=== PATIENT | female | born 1955 | race Caucasian/White ===

== ENCOUNTER 2021-06-21 23:06 | Inpatient (IN) | payer MEDICARE, MEDICAID ==
[~2021-06-21] VITALS: Ht 165.1 cm; Wt 81.0 kg
[2021-06-22 01:17] LABS: BASOPHILS # (AUTO) 0.1 X10'3 (0-0.2); BASOPHILS % (AUTO) 0.9 % (0-1); EOSINOPHILS # (AUTO) 0.2 X10'3 (0-0.9); EOSINOPHILS % (AUTO) 2.7 % (0-6); HEMATOCRIT 45.5 % (35.0-45.0); HEMOGLOBIN 16.1 g/dl (12.0-16.0); LYMPHOCYTES # (AUTO) 1.1 X10'3 (1.1-4.8); LYMPHOCYTES % (AUTO) 18.3 % (21-51); MEAN CORPUSCULAR HGB CONC 35.3 g/dL (33.0-36.5); MEAN PLATELET VOLUME 9.3 FL (7.4-10.4); MONOCYTES # (AUTO) 0.7 X10'3 (0-0.9); MONOCYTES % (AUTO) 11.2 % (2-12); NEUTROPHILS # (AUTO) 4.1 X10'3 (1.8-7.7); NEUTROPHILS % (AUTO) 66.9 % (42-75); PLATELET COUNT 149 X10'3 (140-440); RED CELL DISTRIBUTION WIDTH 13.7 % (11.5-14.5); WHITE BLOOD COUNT 6.2 X10'3 (4.5-11.0)
[2021-06-22 01:20] LABS: URINE AMPHETAMINE SCREEN NEGATIVE (Neg); URINE BARBITUATE SCREEN NEGATIVE (Neg); URINE BENZODIAZEPINES SCREEN NEGATIVE (Neg); URINE CANNABINOID SCREEN NEGATIVE (Neg); URINE COCAINE SCREEN NEGATIVE (Neg); URINE METHADONE SCREEN NEGATIVE (Neg); URINE OPIATE SCREEN NEGATIVE (Neg); URINE PHENCYCLIDINE SCREEN NEGATIVE (Neg)
[2021-06-22 01:25] LABS: ALANINE AMINOTRANSFERASE 38 U/L (12-78); ALBUMIN 2.7 G/DL (3.4-5.0); ALBUMIN/GLOBULIN RATIO 0.6 (1.1-1.5); ALKALINE PHOSPHATASE 179 IU/L (46-116); ANION GAP 8 (8-16); ASPARTATE AMINO TRANSFERASE 42 U/L (10-37); BILIRUBIN,TOTAL 5.4 MG/DL (0.1-1.0); BLOOD UREA NITROGEN 13 MG/DL (7-18); BUN/CREATININE RATIO 16.5 (6.6-38.0); CALCIUM 9.2 MG/DL (8.5-10.1); CHLORIDE 108 MMOL/L (99-107); CREATININE 0.79 MG/DL (0.40-0.90); ETHANOL < 0.010 GM/DL (0.0-0.010); GLUCOSE 110 MG/DL (70-104); SODIUM 143 MMOL/L (135-145); TOTAL CARBON DIOXIDE 27.3 MMOL/L (24-32); TOTAL PROTEIN 7.6 G/DL (6.4-8.2); TROPONIN I < 0.04 NG/ML (0.0-0.05); eGFR 73 ML/MIN
[2021-06-22 01:27] LABS: CLARITY,URINE CLOUDY (Clear); COLOR,URINE DARK YELLOW (Yellow); GLUCOSE, URINE NEGATIVE (Neg); PROTEIN,URINE NEGATIVE (Neg); UA COLLECTION TYPE STRAIGHT CATH
[2021-06-22 01:28] LABS: KETONES,URINE NEGATIVE (Neg); NITRITES, URINE NEGATIVE (Neg); OCCULT BLOOD,URINE MODERATE (Neg)
[2021-06-22 01:29] LABS: LEUKOCYTE ESTERASE ,URINE SMALL (Neg); UROBILINOGEN,URINE >=8.0 E.U/dL (0.2-1.0)
[2021-06-22 01:30] LABS: POTASSIUM 2.5 MMOL/L (3.5-5.1)
[2021-06-22] MEDS ORDERED: potassium Cl 20 mEq SR tablet PO ONE (01:30)
[2021-06-22] MEDS ORDERED: magnesium 2GM in 50ml NS 50 ML IV ONE (01:30)
[2021-06-22] MEDS ORDERED: potassium Cl 40 mEq/0.45% sodium chloride IV soln 520ml IV ONE (01:30)
[2021-06-22 01:36] LABS: BACTERIA,URINE 4+ /HPF (Neg); MUCUS STRANDS FEW /LPF (Neg); SQUAMOUS EPITHELIAL CELL,UR FEW /LPF (FEW); WBC CLUMPS,URINE MODERATE /HPF (NEGATIVE); WBC,URINE 20-30 /HPF (0-4)
[2021-06-22] MEDS ORDERED: Potassium Cl 40 MEQ in sodium chloride 0.45% 500 ML IV ONE (01:40)
[2021-06-22] MEDS ORDERED: iohexol 350MG/ML 100ml bottle IV ONE ×2 (02:07→02:37)
[2021-06-22] MEDS ORDERED: CefTRIAXone 2gm/D5W 50ml BAG 50 ML IV ONE (02:10)
[2021-06-22] MEDS ORDERED: HYDROcodone/acetaminophen 10/325mg tab PO PRN (04:10)
[2021-06-22] MEDS ORDERED: potassium Cl 40MEQ/1/2NS 520ml 520 ML IV PRN ×2 (04:10)
[2021-06-22] MEDS ORDERED: magnesium 4gm in 100ml NS 100 ML IV PRN (04:10)
[2021-06-22] MEDS ORDERED: HYDROcodone/acetaminophen 5mg/325mg tablet PO PRN (04:10)
[2021-06-22] MEDS ORDERED: magnesium 2GM in 50ml NS 50 ML IV PRN (04:10)
[2021-06-22] MEDS ORDERED: ondansetron/PF 4mg/2ml inj IV PRN (04:10)
[2021-06-22] MEDS ORDERED: potassium Cl 20 mEq SR tablet PO PRN (04:10)
[2021-06-22] MEDS ORDERED: bisacodyl 10mg suppository rectal RC PRN (04:10)
[2021-06-22] MEDS ORDERED: acetaminophen 325mg tablet PO PRN ×2 (04:10)
[2021-06-22] MEDS ORDERED: dexamethasone sod phosphate 10mg/ml inj IV STA (04:30)
[2021-06-22] MEDS: normal saline 1000ml 1,000 ML IV SCH ×3 (04:47→20:00)
[2021-06-22] MEDS ORDERED: hydrALAZINE 20mg/ml inj. IV PRN (05:00)
[2021-06-22 05:13] LABS: D-DIMER 0.66 MG/L FEU (0-0.50)
[2021-06-22 05:23] LABS: C-REACTIVE PROTEIN 2.19 MG/DL (0.0-0.5); FERRITIN 767 NG/ML (8-252); LACTATE DEHYDROGENASE 357 U/L (81-234)
[2021-06-22] MEDS ORDERED: dexamethasone inj 6 MG in normal saline 50ml IV soln 50 ML IV SCH (08:00)
[2021-06-22] MEDS: piperacillin/tazo 3.375gm/50ml 50 ML IV SCH ×2 (08:11→16:09)
[2021-06-22] MEDS: K and/or MAG REPLACEMENT MC SCH ×2 (08:12→20:00)
[2021-06-22] MEDS: docusate sod 100mg capsule PO SCH ×2 (08:12→20:11)
[2021-06-22] MEDS: dexamethasone 4mg/ml inj IV SCH ×2 (08:12→20:11)
[2021-06-22] MEDS ORDERED: UNABLE TO OBTAIN (11:36)
[2021-06-22] MEDS ORDERED: CARV-50 PO (12:19)
[2021-06-22] MEDS ORDERED: POTA8TAB3 PO (12:19)
[2021-06-22] MEDS ORDERED: METO-411 PO (12:19)
[2021-06-22] MEDS ORDERED: HYDR25TA5 PO (12:19)
[2021-06-22] MEDS: lactulose 20gm/30ml cup PO SCH ×2 (12:33→22:44)
--- NOTE | 2021-06-22 13:20 | NUR ---
Pt given lunch tray of clear liquids. Good appitite. Tearful.
--- NOTE | 2021-06-22 13:30 | NUR ---
Pt speaks in short 3-4 word sentences.
--- NOTE | 2021-06-22 18:15 | NUR ---
Attempted to give report to Surgical Floor. Staff is not ready.
--- NOTE | 2021-06-22 18:38 | NUR ---
Report given to KATE Stevenson on the Surgical floor.
[2021-06-22] MEDS ORDERED: enoxaparin 40mg/0.4ml syringe SQ SCH (20:00)
[2021-06-22] MEDS: lactobacillus rhamnosus 10,000 MMU CELLS/CAPSULE PO SCH (20:11)
[2021-06-23] MEDS: potassium Cl 20 mEq SR tablet PO PRN ×2 (00:43→05:19)
[2021-06-23] MEDS: piperacillin/tazo 3.375gm/50ml 50 ML IV SCH ×2 (00:43→10:57)
[2021-06-23 04:44] LABS: D-DIMER 0.55 MG/L FEU (0-0.50)
[2021-06-23 04:48] LABS: ALANINE AMINOTRANSFERASE 32 U/L (12-78); ALBUMIN 2.3 G/DL (3.4-5.0); ALKALINE PHOSPHATASE 160 IU/L (46-116); ANION GAP 11 (8-16); ASPARTATE AMINO TRANSFERASE 31 U/L (10-37); BILIRUBIN,TOTAL 3.7 MG/DL (0.1-1.0); BLOOD UREA NITROGEN 12 MG/DL (7-18); BUN/CREATININE RATIO 12.4 (6.6-38.0); C-REACTIVE PROTEIN 1.65 MG/DL (0.0-0.5); CALCIUM 8.1 MG/DL (8.5-10.1); CHLORIDE 112 MMOL/L (99-107); CREATININE 0.97 MG/DL (0.40-0.90); MAGNESIUM 1.9 MG/DL (1.5-2.4); POTASSIUM 3.5 MMOL/L (3.5-5.1); SODIUM 145 MMOL/L (135-145); TOTAL CARBON DIOXIDE 21.9 MMOL/L (24-32); eGFR 58 ML/MIN
[2021-06-23 04:50] LABS: ALBUMIN/GLOBULIN RATIO 0.5 (1.1-1.5); GLUCOSE 148 MG/DL (70-104); TOTAL PROTEIN 7.3 G/DL (6.4-8.2)
[2021-06-23] MEDS: lactulose 20gm/30ml cup PO SCH ×2 (04:53→11:01)
[2021-06-23 05:11] LABS: BASOPHILS % (AUTO) 0.2 % (0-1); EOSINOPHILS % (AUTO) 0.1 % (0-6); HEMATOCRIT 46.2 % (35.0-45.0); HEMOGLOBIN 16.1 g/dl (12.0-16.0); LYMPHOCYTES # (AUTO) 0.5 X10'3 (1.1-4.8); MEAN CORPUSCULAR HEMOGLOBIN 35.2 PG (27.0-31.0); MEAN CORPUSCULAR HGB CONC 34.9 g/dL (33.0-36.5); MONOCYTES # (AUTO) 0.2 X10'3 (0-0.9); MONOCYTES % (AUTO) 1.5 % (2-12); NEUTROPHILS # (AUTO) 12.7 X10'3 (1.8-7.7); NEUTROPHILS % (AUTO) 94.2 % (42-75); PLATELET COUNT 139 X10'3 (140-440); RED BLOOD COUNT 4.58 X10'6 (4.20-5.60); WHITE BLOOD COUNT 13.5 X10'3 (4.5-11.0)
--- NOTE | 2021-06-23 06:06 | NUR ---
PT ATTEMPTING TO LEAVE, PT SOILED BED WITH STOOL AND ATTEMPTED TO GET DRESSED. PT CLEANED UP and educated of the DANGERS OF LEAVING AMA. PT STATES SHE WANTS TO LEAVE ANYWAYS. PT CONFUSED TO WHERE SHE IS AND WHY SHES HERE. PT CURSING AT STAFF REGARDING LEAVING. PT PLACED ON COMMODE FOR NOW. WILL GET PT BACK TO BED AND PASS MESSAGE TO DAYSHIFT RN.
--- NOTE | 2021-06-23 06:51 | NUR ---
I have received report from KATE Worthington in ER and had the opportunity to ask questions. Will await pts arrival to the floor.
--- NOTE | 2021-06-23 07:25 | NUR ---
NOTIFIED THE CHARGE THAT PT IS REFUSING TO GO TO THE FLOOR AND WANTS TO LEAVE THE HOSPITAL ,CHARGE NURSE LIZ SPOKE TO THE PT AND PT WAS ABLE TO ANWER ALL THE QUES CORRECTLY , PER CHARGE CALL THE FAMILY IF THEY CAN CHARGE GANG WEIGHER PT AND CONTACT HOSPITALIST AND IF HOSPITALIST AGREE FOR AMA THEN WILL CALL FOR RIDE BACK HOME.
--- NOTE | 2021-06-23 07:27 | NUR ---
PAGED DR OLIVA AT THIS TIME.
--- NOTE | 2021-06-23 07:35 | NUR ---
REPAGED DR OLIVA AT THIS TIME.
--- NOTE | 2021-06-23 07:39 | NUR ---
SPOKE TO DR OLIVA PER MD PT CAN SIGN AMA HE WAS GOING TO D/C THE PT TODAY ,INFORMED THE PROVIDER THAT SHE IS ALERT ORIENTED X 4 FOR LIZ CHARGE NURSE , PER GET ER SIGNATURE FOR AMA . SPOKE TO DR ACEVEDO AND CHARGE NURSE PER MD HE WON'T SIGN AMA FORM ,LIZ WILL CALL THE HOSPITALIST .
--- NOTE | 2021-06-23 07:51 | NUR ---
pt arrived to the o/n floor in stable condition. Pt does not want to stay. will try to get ahold of pts to come pick her up.
[2021-06-23] MEDS: docusate sod 100mg capsule PO SCH (08:00)
[2021-06-23] MEDS: K and/or MAG REPLACEMENT MC SCH (08:00)
[2021-06-23 10:00] VITALS: BP 170/88
[2021-06-23] MEDS: normal saline 1000ml 1,000 ML IV SCH (10:52)
[2021-06-23] MEDS: dexamethasone 4mg/ml inj IV SCH (11:05)
[2021-06-23] MEDS: lactobacillus rhamnosus 10,000 MMU CELLS/CAPSULE PO SCH (11:08)
[2021-06-23] MEDS ORDERED: LACT10SO7 PO (12:00)
[2021-06-23] MEDS ORDERED: DEC4T PO (12:00)
[2021-06-23] MEDS ORDERED: AMOX-422 PO (12:00)
--- NOTE | 2021-06-23 14:52 | NUR ---
CALLED IN MEDS TO MICHAELLE JACKSON.
--- NOTE | 2021-06-23 16:06 | NUR ---
DC INSTRUCTIONS GIVEN, QUESTIONS ANSWERED. IV REMOVED, CANULA INTACT, NO COMPLICATIONS, BANDAGE APPLIED. GATHERED PTS BELONGINGS. WHEELED DOWN TO PRIVATE VEHICLE. GAVE DC INSTRUCTIONS TO CAREGIVER.
== END 2021-06-23 15:35 | disposition home or self-care (01) | DRG 441 ==
LOC: ER 23:07 → ED HOLD 06-22 04:14 → CANBEDREQ 06-22 18:40 → ORTHO 4S 06-23 08:13
PROVIDERS: ADMIT Family Medicine; ATTEND Family Medicine
PROC: B32T1ZZ Computerized Tomography (CT Scan) of Left Pulmonary Artery using Low Osmolar Contrast (ICD-10-PCS; principal; 2021-06-22)
PROC: B3201ZZ Computerized Tomography (CT Scan) of Thoracic Aorta using Low Osmolar Contrast (ICD-10-PCS; 2021-06-22)
PROC: B32S1ZZ Computerized Tomography (CT Scan) of Right Pulmonary Artery using Low Osmolar Contrast (ICD-10-PCS; 2021-06-22)
DX: K72.90 Hepatic failure, unspecified without coma (principal); U07.1 COVID-19; J12.82 Pneumonia due to coronavirus disease 2019; N39.0 Urinary tract infection, site not specified; R04.2 Hemoptysis; K76.6 Portal hypertension; K74.60 Unspecified cirrhosis of liver; B96.1 Klebsiella pneumoniae [K. pneumoniae] as the cause of diseases classified elsewhere; E87.6 Hypokalemia; I10 Essential (primary) hypertension; F32.9 Major depressive disorder, single episode, unspecified
CPT/HCPCS: 36415; 70450; 71045; 71275; 80053; 80305; 80320; 81001; 82140; 82728; 82948; 83605; 83615; 83735; 84132; 84145; 84443; 84484; 85025; 85379; 85384; 86140; 87040; 87077; 87088; 87186; 87635; 93005; 99285; C9803; G0378; J0696; J1100; J1650; J2543; J3475; J3480; J7030; Q9967